=== PATIENT | female | born 2000 | race African-American/Black ===

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

== ENCOUNTER 2018-01-18 12:06 | Emergency (ER) | payer BC ==
[2018-01-18 13:21] LABS: Bilirubin Negative (Negative); Blood, Urine Negative (Negative); Clarity CLOUDY (Clear); Glucose, Urine (Dipstick) Negative (Negative); Leukocyte Moderate (Negative); Nitrite Negative (Negative); Protein, Urine (Dipstick) Negative (Neg-Trace)
[2018-01-18 13:31] LABS: Bacteria/HPF 2+ HPF (None Seen); Hyaline Casts/LPF 0-3 HYALINE CAST LPF (0-3 Hyaline); RBC/HPF 0-3 HPF (0-3)
[2018-01-18 13:39] LABS: Yeast-All Forms None Seen HPF (None Seen)
[2018-01-18 14:48] LABS: Pregu Control Background? CLEAR/WHITE (CLR/WHITE); Pregu Control Bar Appear? YES (CONTROL BAR)
[2018-01-18 14:50] LABS: Pregnancy Test - Urine (BHCG) Negative (Negative)
[2018-01-20 01:07] LABS: Chlamydia by PCR Not Detected (NotDetected); GC by PCR Not Detected (NotDetected)
== END 2018-01-18 14:55 | disposition home or self-care (01) ==
LOC: ERS 12:06
DX: N76.0 Acute vaginitis (principal); N39.0 Urinary tract infection, site not specified
CPT/HCPCS: 81003; 81015; 81025; 87480; 87491; 87510; 87591; 87660; 99283

== ENCOUNTER 2018-04-24 07:45 | Emergency (ER) | payer BC ==
[2018-04-24 08:28] LABS: Bilirubin Negative (Negative); Blood, Urine Trace (Negative); Clarity CLOUDY (Clear); Glucose, Urine (Dipstick) Negative (Negative); Leukocyte Large (Negative); Nitrite Positive (Negative); Protein, Urine (Dipstick) 30 mg/dL (Neg-Trace); Specific Gravity, Urine 1.016 (1.002-1.036); pH, Urine 7.5 (5.0-9.0)
[2018-04-24 08:30] LABS: Bacteria/HPF 3+ HPF (None Seen); Hyaline Casts/LPF 0-3 HYALINE CAST LPF (0-3 Hyaline); Pathc Cast-AUWi Flag 0.14 (0-2.49); Squamous Epithelial 0-3 HPF (0-3)
[2018-04-24 08:31] LABS: Pregnancy Test - Urine (BHCG) Negative (Negative); Pregu Control Background? CLEAR/WHITE (CLR/WHITE); Pregu Control Bar Appear? YES (CONTROL BAR); Specific Gravity 1.016 (1.002-1.036)
== END 2018-04-24 08:48 | disposition home or self-care (01) ==
LOC: ERS 07:45
DX: J06.9 Acute upper respiratory infection, unspecified (principal); N39.0 Urinary tract infection, site not specified
CPT/HCPCS: 81003; 81015; 81025; 87077; 87086; 87186; 99283

== ENCOUNTER 2018-05-27 12:09 | Emergency (ER) | payer BC ==
[2018-05-27 12:55] LABS: Bilirubin Negative (Negative); Blood, Urine Moderate (Negative); Clarity TURBID (Clear); Glucose, Urine (Dipstick) Negative (Negative); Leukocyte Large (Negative); Nitrite Positive (Negative); Protein, Urine (Dipstick) 100 mg/dL (Neg-Trace); Specific Gravity, Urine 1.015 (1.002-1.036)
[2018-05-27 12:57] LABS: Pregnancy Test - Urine (BHCG) Negative (Negative); Pregu Control Background? CLEAR/WHITE (CLR/WHITE); Pregu Control Bar Appear? YES (CONTROL BAR); Specific Gravity 1.015 (1.002-1.036)
[2018-05-27 12:58] LABS: Bacteria/HPF 4+ HPF (None Seen); Squamous Epithelial 0-3 HPF (0-3); Yeast-AUWi Flag 20.1 (0-25.0)
[2018-05-27 12:59] LABS: Pathc Cast-AUWi Flag 2.66 (0-2.49)
[2018-05-27] MEDS ORDERED: Ketorolac Tromethamine 30 MG/ML VIAL ONE (13:08)
[2018-05-27 13:13] LABS: Hyaline Casts/LPF 0-3 HYALINE CAST LPF (0-3 Hyaline); Other Casts/LPF None Seen LPF (0-3 Hyaline)
[2018-05-27 13:33] LABS: Mean Corpuscular HGB CONC 32.8 g/dL (32.0-36.0); Mean Corpuscular Volume 94.4 fL (78.0-98.0); Mean Platelet Volume 7.7 fL (7.4-10.4); Platelet Count 208 thou/uL (130-400); RBC Distribution Width 11.7 % (11.5-14.5); Red Blood Cell (RBC) Count 3.88 mill/uL (4.00-5.20); White Blood Cell (WBC) Count 9.3 thou/uL (4.8-10.8)
[2018-05-27 13:38] LABS: ALT (SGPT) 7 U/L (8-55); AST (SGOT) 13 U/L (5-30); Albumin 3.9 g/dL (3.5-5.0); Alkaline Phosphatase 48 U/L (40-150); Anion Gap 11 mmol/L (10-20); BUN (Urea Nitrogen) 9 mg/dL (8.4-21.0); Bilirubin, Total 2.5 mg/dL (0.2-1.2); Calc. Creatinine Clearance 0 mL/min (70-130); Calcium 9.2 mg/dL (7.8-10.44); Carbon Dioxide 24 mmol/L (22-29); Chloride 106 mmol/L (98-107); Estimated GFR-MDRD Greater than 90; Glucose 81 mg/dL (70-105); Lipase 22 U/L (8-78); Potassium 3.5 mmol/L (3.5-5.1); Protein, Total 6.9 g/dL (6.0-8.3); Sodium 137 mmol/L (136-145)
[2018-05-27 13:48] LABS: Band 1 % (5-11); Lymphocytes 16 % (28-48); MDiff Complete? YES; Monocytes 9 % (0-4); Neutrophil 74 % (31-61); PLT Morphology Comment Appears Adequate; RBC Morphology Normal; Vacuoles SLIGHT
[2018-05-27] MEDS ORDERED: Lidocaine 1% PF 5 ML VIAL ONE (13:50)
[2018-05-27] MEDS ORDERED: cefTRIAXone\\ROCEPHIN 500 MG VIAL ONE (13:50)
== END 2018-05-27 14:53 | disposition home or self-care (01) ==
LOC: ERS 12:09
DX: N12 Tubulo-interstitial nephritis, not specified as acute or chronic (principal)
CPT/HCPCS: 36415; 80053; 81003; 81015; 81025; 83690; 85025; 87077; 87086; 87186; 96372; J0696; J1885; J2001

== ENCOUNTER 2018-07-26 10:23 | Emergency (ER) | payer BC ==
[2018-07-26 11:33] LABS: #Eosinphils 0.4 thou/uL (0.0-0.7); #Lymphocytes 2.5 thou/uL (1.20-3.40); #Monocytes 0.5 thou/uL (0.11-0.59); #Neutrophils 3.6 thou/uL (1.40-6.50); %Basophils 0.4 % (0.0-1.0); %Eosinophils 6.2 % (0.0-10.0); %Lymphocytes 35.6 % (28.0-48.0); %Monocytes 7.3 % (0.0-4.0); %Neutrophils 50.5 % (31.0-61.0); Hemoglobin 11.4 g/dL (12.0-16.0); Mean Corpuscular HGB CONC 32.6 g/dL (32.0-36.0); Mean Corpuscular Hemoglobin 30.5 pg (25.0-35.0); Mean Corpuscular Volume 93.8 fL (78.0-98.0); Mean Platelet Volume 8.7 fL (7.4-10.4); Platelet Count 196 thou/uL (130-400); RBC Distribution Width 11.9 % (11.5-14.5); Red Blood Cell (RBC) Count 3.75 mill/uL (4.00-5.20); White Blood Cell (WBC) Count 7.1 thou/uL (4.8-10.8)
[2018-07-26 11:52] LABS: ALT (SGPT) 10 U/L (8-55); AST (SGOT) 20 U/L (5-34); Alkaline Phosphatase 42 U/L (40-150); Anion Gap 14 mmol/L (10-20); BUN (Urea Nitrogen) 12 mg/dL (7.0-18.7); Bilirubin, Total 0.7 mg/dL (0.2-1.2); Calc. Creatinine Clearance 0 mL/min (70-130); Calcium 9.3 mg/dL (7.8-10.44); Carbon Dioxide 19 mmol/L (22-29); Chloride 109 mmol/L (98-107); Estimated GFR-MDRD Greater than 90; Globulin 3.1 g/dL (2.4-3.5); Glucose 85 mg/dL (70-105); Potassium 3.8 mmol/L (3.5-5.1); Protein, Total 7.1 g/dL (6.0-8.3); Sodium 138 mmol/L (136-145)
[2018-07-26 12:07] LABS: Bilirubin Negative (Negative); Blood, Urine Negative (Negative); Clarity CLEAR (Clear); Glucose, Urine (Dipstick) Negative (Negative); Leukocyte Negative (Negative); Nitrite Negative (Negative); Protein, Urine (Dipstick) Negative (Neg-Trace); Specific Gravity, Urine 1.027 (1.002-1.036); pH, Urine 5.5 (5.0-9.0)
[2018-07-26 12:08] LABS: Pregnancy Test - Urine (BHCG) Negative (Negative); Pregu Control Background? CLEAR/WHITE (CLR/WHITE); Pregu Control Bar Appear? YES (CONTROL BAR); Specific Gravity 1.027 (1.002-1.036)
[2018-07-26] MEDS ORDERED: Fluconazole 100 MG TAB PO SCH (12:15)
== END 2018-07-26 12:34 | disposition home or self-care (01) ==
LOC: ERS 10:23
DX: B37.3 Candidiasis of vulva and vagina (principal)
CPT/HCPCS: 36415; 80053; 81003; 81025; 85025; 99283

== ENCOUNTER 2018-10-11 19:04 | Emergency (ER) | payer BC ==
[2018-10-11 19:24] LABS: Bilirubin Negative (Negative); Blood, Urine Negative (Negative); Clarity CLOUDY (Clear); Glucose, Urine (Dipstick) Negative (Negative); Leukocyte Moderate (Negative); Nitrite Positive (Negative); Protein, Urine (Dipstick) 30 mg/dL (Neg-Trace); Specific Gravity, Urine 1.028 (1.002-1.036); pH, Urine 7.5 (5.0-9.0)
[2018-10-11 19:25] LABS: Bacteria/HPF 4+ HPF (None Seen); Pathc Cast-AUWi Flag 0.14 (0-2.49); Pregnancy Test - Urine (BHCG) Negative (Negative); Pregu Control Background? CLEAR/WHITE (CLR/WHITE); Pregu Control Bar Appear? YES (CONTROL BAR); Specific Gravity 1.028 (1.002-1.036)
[2018-10-11 19:34] LABS: Hyaline Casts/LPF 0-3 HYALINE CAST LPF (0-3 Hyaline)
== END 2018-10-11 19:54 | disposition home or self-care (01) ==
LOC: ERS 19:04
DX: N39.0 Urinary tract infection, site not specified (principal)
CPT/HCPCS: 81003; 81015; 81025; 87077; 87086; 87186; 99283

== ENCOUNTER 2019-01-06 08:54 | Emergency (ER) | payer BC ==
[2019-01-06 09:26] LABS: Bilirubin Negative (Negative); Blood, Urine Moderate (Negative); Clarity TURBID (Clear); Glucose, Urine (Dipstick) Negative (Negative); Leukocyte Large (Negative); Nitrite Negative (Negative); Protein, Urine (Dipstick) 30 mg/dL (Neg-Trace); Specific Gravity, Urine 1.028 (1.002-1.036)
[2019-01-06 09:27] LABS: Bacteria/HPF 2+ HPF (None Seen); Hyaline Casts/LPF 4-6 HYALINE CAST LPF (0-3 Hyaline); Pathc Cast-AUWi Flag 1.21 (0-2.49)
[2019-01-06 09:29] LABS: Pregnancy Test - Urine (BHCG) Negative (Negative); Pregu Control Background? CLEAR/WHITE (CLR/WHITE); Pregu Control Bar Appear? YES (CONTROL BAR); Specific Gravity 1.028 (1.002-1.036)
== END 2019-01-06 09:35 | disposition home or self-care (01) ==
LOC: ERS 08:54
DX: N39.0 Urinary tract infection, site not specified (principal)
CPT/HCPCS: 81003; 81015; 81025; 99283

== ENCOUNTER 2020-06-17 12:30 | Emergency (ER) | payer SELFPAY | END 2020-06-17 13:51 | disposition home or self-care (01) | LOC: ERS 12:30 | DX: O9A.211 Injury, poisoning and certain other consequences of external causes complicating pregnancy, first trimester (principal); Z3A.13 13 weeks gestation of pregnancy; M25.511 Pain in right shoulder; H92.03 Otalgia, bilateral; W22.8XXA Striking against or struck by other objects, initial encounter ==

== ENCOUNTER 2020-12-19 07:56 | Inpatient (IN) | payer BC, MEDICAID ==
[2020-12-26] MEDS ORDERED: Bupivacaine HCl 0.25%/Epi 0.0005/PF 10 ML VIAL FS ONE (11:23)
[2020-12-26] MEDS: Lactated Ringer's 1,000 ML IV SCH (20:30)
[2020-12-26] MEDS ORDERED: Ondansetron PF 4 MG/2 ML Vial IVP PRN (20:57)
[2020-12-26] MEDS ORDERED: hydrALAZINE 20 MG/ML VIAL SLOW IVP PRN (20:57)
[2020-12-26] MEDS ORDERED: Ibuprofen 800 MG TAB PO PRN (20:57)
[2020-12-26] MEDS ORDERED: Lidocaine 1% (PF) 30 ML VIAL SC PRN (20:57)
[2020-12-26] MEDS ORDERED: HYDROcodone/Acetaminophen 5/325 mg Tablet PO PRN ×2 (20:57)
[2020-12-26] MEDS ORDERED: Carboprost 250 MCG/ML AMP IM PRN (20:57)
[2020-12-26] MEDS ORDERED: Misoprostol 200 MCG TAB PR PRN (20:57)
[2020-12-26] MEDS ORDERED: Promethazine HCl 25 MG/ML VIAL IM PRN (20:57)
[2020-12-26] MEDS ORDERED: Diphenoxylate HCl/Atropine Tablet PO PRN ×2 (20:57)
[2020-12-26] MEDS ORDERED: Methylergonovine 0.2 MG/ML VIAL IM PRN (20:57)
[2020-12-26 21:04] VITALS: BMI 39.3
[2020-12-26 21:30] LABS: Hemoglobin 12.1 g/dL (12.0-16.0); Mean Corpuscular HGB CONC 33.5 g/dL (32.0-36.0); Mean Corpuscular Hemoglobin 32.9 pg (27.0-31.0); Mean Corpuscular Volume 98.2 fL (78.0-98.0); Mean Platelet Volume 10.7 fL (7.4-10.4); Platelet Count 158 thou/uL (130-400); Red Blood Cell (RBC) Count 3.69 mill/uL (4.20-5.40)
[2020-12-26] MEDS ORDERED: NS w/ Oxytocin 30 units 500 ML IVPB PRN (21:39)
[2020-12-26] MEDS ORDERED: NS w/ Oxytocin 30 units 500 ML IVPB SCH (21:45)
[2020-12-26] MEDS: Misoprostol 100 MCG TAB VAG SCH (21:49)
[2020-12-26 22:09] LABS: Syphilis Antibody Nonreactive (Nonreactive); Syphilis Antibody Index 0.04 S/CO (<1.00 Non-Reactive)
[2020-12-26 22:39] LABS: HBSAg Index 0.17 S/CO (0-0.99); Hep B Surf Ag Non-Reactive S/CO (NonReactive)
[2020-12-27] MEDS: Misoprostol 100 MCG TAB VAG SCH (00:57)
[2020-12-27] MEDS ORDERED: Terbutaline Sulfate 1 MG/ML VIAL ONE (02:42)
[2020-12-27] MEDS: Lactated Ringer's 1,000 ML IV SCH ×3 (06:43→20:51)
[2020-12-27] MEDS: Butorphanol Tartrate 1 MG/ML VIAL SLOW IVP PRN ×3 (08:06→14:29)
--- NOTE | 2020-12-27 08:14 | PDOC.LDHP ---
Labor and Delivery H&P Chief complaint: scheduled induction (for postdates) HPI: pt arrives for IOL. Current gestational age (weeks): 41 Due date: 12/19/20 Dating criteria: last menstrual period (verified with 8w US) Grav: 1 Para: 0 Current complications: other (CT+ Trich + Neg DACIA on 08/15/20 and at 36 weeks visit.) Abnormal US findings: No Current medications: pre- vitamins, other (Aspirin) Previous surgical history: other (Tonsillectomy) Allergies/Adverse Reactions: Allergies Allergy/AdvReac Type Severity Reaction Status Date / Time No Known Allergies Allergy Unverified 02/20/20 18:22 Social history: none - Physical Exam Vital signs reviewed and normal: yes General: breathing through contractions Heart: other Lungs: nonlabored breathing Abdomen: gravid Extremeties: pitting edema FHT: category 1 - Vaginal Exam cm dilated: 2 Effacement: 50% Station: -3 - OB Labs Blood type: AB RH: positive Antibody Screen: negative HIV: negative RPR: negative HEPSAg: negative 1 hour GCT: negative GBS: negative Urine drug screen: negative Rubella: immune - Assessment L&D Assessment: elective induction at term (for postdates.) - Plan Plan: admit to L&D, cervical ripening (Two doses of cytoec PV given overnight. intolerance to cytotec. Terb was given to stop contractions. Cook balloon placed this am for cervical ripening.), informed consent obtained, anesthesia consult for pain management
[2020-12-27] MEDS ORDERED: Labetalol HCl 100 MG/20 ML VIAL SLOW IVP PRN ×4 (19:20→19:30)
--- NOTE | 2020-12-27 19:30 | PDOC.BPN ---
- Brief Progress Note Encounter Date: 12/27/20 Encounter Time: 19:28 Notified of RN of two severe range BPS. Treated with Hydralizine 5mg. Orders added to given PRN labetalol in 20mg, 40mg, 80mg, 80mg every twenty minutes for pressures. Instructed shift supervisor film processing RN to discontinue cooks balloon and encourage patient to get epidural.
[2020-12-27] MEDS ORDERED: Fentanyl 4 mcg/Bup 0.1% Cadd 100 ML ONE (19:47)
[2020-12-27] MEDS: Fentanyl 4 mcg/Bupivacaine 0.1% Cassette 100 ML EPIDURAL SCH (20:16)
[2020-12-27] MEDS ORDERED: Promethazine HCl 25 MG/ML VIAL IM PRN (20:31)
[2020-12-27] MEDS ORDERED: Lactated Ringer's 500 ML IV PRN (20:31)
[2020-12-27] MEDS ORDERED: ePHEDrine 50 MG/ML VIAL SLOW IVP PRN (20:31)
[2020-12-27] MEDS ORDERED: diphenhydrAMINE 50 MG/ML VIAL IVP PRN (20:31)
[2020-12-27] MEDS ORDERED: Naloxone HCl 0.4 mg/ml Vial IVP PRN ×2 (20:31)
[2020-12-27] MEDS ORDERED: Acetaminophen 325 MG TAB PO PRN (20:31)
[2020-12-27] MEDS ORDERED: Ondansetron PF 4 MG/2 ML Vial IVP PRN (20:31)
[2020-12-27] MEDS ORDERED: Communication Order-Pharmacy FS SCH (20:45)
[2020-12-28] MEDS ORDERED: Azithromycin 500 MG VIAL ONE (00:28)
[2020-12-28] MEDS: Fentanyl 4 mcg/Bupivacaine 0.1% Cassette 100 ML EPIDURAL SCH (04:20)
[2020-12-28] MEDS ORDERED: Famotidine/PF 20 mg/2ml Vial SLOW IVP PRN (05:46)
[2020-12-28] MEDS ORDERED: Bicitra 30 ML UDCUP PO PRN (05:46)
[2020-12-28] MEDS ORDERED: CEFAZOLIN 2 GM in Premix Bag 1 BAG IVPB SCH (06:00)
[2020-12-28] MEDS ORDERED: Azithromycin 500 MG in Sodium Chloride 0.9% 250 ML 250 ML IVPB SCH (06:00)
[2020-12-28] MEDS ORDERED: Morphine PF 10 MG/10 ML VIAL ONE (07:23)
[2020-12-28] MEDS ORDERED: Oxytocin 10 UNITS/ML VIAL ONE (07:24)
[2020-12-28] MEDS ORDERED: Lidocaine 2% 10 ML INJ ONE (07:24)
[2020-12-28] MEDS ORDERED: Ondansetron PF 4 MG/2 ML Vial ONE (07:24)
[2020-12-28] MEDS ORDERED: Fentanyl 100 MCG/2 ML VIAL ONE (08:02)
[2020-12-28] MEDS ORDERED: Naloxone HCl 0.4 mg/ml Vial IV PRN (08:08)
[2020-12-28] MEDS ORDERED: diphenhydrAMINE 50 MG/ML VIAL IVP PRN (08:08)
[2020-12-28] MEDS ORDERED: Naloxone HCl 0.4 mg/ml Vial IVP PRN ×2 (08:08)
[2020-12-28] MEDS ORDERED: Ondansetron HCl/PF 4 MG/2 ML Vial IVP PRN (08:08)
[2020-12-28] MEDS ORDERED: Promethazine HCl 25 MG SUPP PR PRN (08:08)
[2020-12-28] MEDS ORDERED: Ondansetron PF 4 MG/2 ML Vial IVP PRN ×2 (08:08→11:24)
[2020-12-28] MEDS ORDERED: L&D-Morphine 4 MG/ML VIAL SLOW IVP PRN (08:08)
[2020-12-28] MEDS ORDERED: Meperidine HCl/PF 25 MG/ML VIAL SLOW IVP PRN (08:08)
[2020-12-28] MEDS ORDERED: Promethazine HCl 25 MG/ML VIAL IM PRN (08:08)
[2020-12-28] MEDS ORDERED: Ketorolac Tromethamine 30 MG/ML VIAL IVP SCH (08:15)
[2020-12-28] MEDS ORDERED: Communication Order-Pharmacy FS SCH (08:15)
--- NOTE | 2020-12-28 08:21 | PDOC.OPDEL ---
OB Operative/Delivery Note Delivery Dr/Surgeon: Shaheed Assist: Light Pre-Delivery Diagnosis: non-reassuring tracing Procedure/Post Delivery Dx: primary low transverse CS Weeks gestation: 41 Anesthesia: epidural - Findings A Sex: male - 1 min: 8 - 5 min: 9 - Additional Findings/Plan Placenta delivered: spontaneous findings: low transverse hysterotomy without extension, normal uterus, normal tubes, normal ovaries (PCO ovaries) Estimated blood loss: 300cc Compilations/Other Findings: thick meconium, OP presentation, significant caput and molding. Post delivery plan: routine recovery
[2020-12-28] MEDS ORDERED: Meperidine HCl/PF 25 MG/ML VIAL ONE (08:43)
--- NOTE | 2020-12-28 08:45 | OP ---
DATE OF PROCEDURE: 12/28/2020 PREOPERATIVE DIAGNOSES: 1. Intrauterine at 41 weeks and 2 days. 2. intolerance of labor remote from delivery. POSTOPERATIVE DIAGNOSES: 1. Intrauterine at 41 weeks and 2 days. 2. intolerance of labor remote from delivery. 3. Thick meconium and OP presentation. FOREST TECHNICIAN: Poly Young CNM PROCEDURE PERFORMED: Primary low-transverse section via Pfannenstiel skin incision. ANESTHESIA: Epidural. ESTIMATED BLOOD LOSS: 300 mL. URINE OUTPUT: 200 mL of concentrated urine. COMPLICATIONS: None. DRAINS: Martinez catheter. PATHOLOGY: None. FINDINGS: Male infant, cephalic presentation, OP, caput molding, thick meconium-stained fluid. Apgars 8 and 9. Weight is pending. Normal uterus, ovaries, and tubes. Hysterotomy without extension. Double-layer closure of the hysterotomy. DESCRIPTION OF PROCEDURE: The patient was taken to the operating room, where epidural anesthesia was found to be adequate. The patient was prepped and draped in a sterile fashion in the dorsal supine position with leftward tilt. After ensuring adequacy of anesthesia, a Pfannenstiel skin incision was made and carried down to the underlying subcutaneous tissue with a knife. The fascia was nicked in the midline with the Bovie and carried laterally with Mckeon scissors. The superior aspect of the fascia was tented with 2 Nimesh's and dissected off the rectus with the Mckeon scissors. The inferior aspect of the fascia was tented with 2 Nimesh's and dissected off the rectus down the pubic symphysis. The rectus was bluntly divided in the midline. The peritoneum was bluntly entered into and manually retracted. An Kristian O retractor was placed. Lower uterine segment was incised in a transverse fashion and extended with a Tijerina maneuver. The 's head was brought to the hysterotomy and delivered atraumatically with fundal pressure. The 's cord was clamped and infant handed to awaiting Sanjay team. The placenta was allowed to spontaneously deliver. The uterus was exteriorized, cleared of all clots and debris and placed back into the abdomen lapping of the posterior cul-de-sac. The hysterotomy was repaired with a #1 Monocryl in a running locking fashion. A second horizontal imbricating layer was placed with #1 Monocryl. Hemostasis was noted to be excellent. Irrigation was performed of the pelvis and pericolic gutters and suctioned. The Kristian O retractor was removed. The rectus muscles were examined and noted to be hemostatic. The fascia was reapproximated with a 0 PDS x1 suture with excellent reapproximation. The subcutaneous tissue was irrigated and cauterized of any bleeders, reapproximated with a 2-0 plain gut in a running fashion. The skin was closed with 4-0 Monocryl in a subcuticular fashion. Dermabond was applied as well as a pressure dressing. The patient tolerated the procedure well. Sponge, lap, and needle counts were correct x2. The patient was taken to recovery room in stable condition. The patient received Ancef 2 g and azithromycin 500 mg prior to the procedure. Job ID: [id number]
[2020-12-28] MEDS: Misoprostol 100 MCG TAB VAG SCH ×3 (09:32→12:09)
[2020-12-28] MEDS ORDERED: Ketorolac Tromethamine 30 MG/ML VIAL ONE (10:03)
[2020-12-28] MEDS: Ketorolac Tromethamine 30 MG/ML VIAL IVP PRN ×3 (10:05→22:13)
[2020-12-28] MEDS ORDERED: Lanolin Ointment 7 GM TUBE TOP PRN (11:24)
[2020-12-28] MEDS ORDERED: hydrALAZINE 20 MG/ML VIAL SLOW IVP PRN (11:24)
[2020-12-28] MEDS ORDERED: Methylergonovine 0.2 MG/ML VIAL IM PRN (11:24)
[2020-12-28] MEDS ORDERED: Adacel (T-DAP) 0.5 ML SYRINGE IM ONE (11:24)
[2020-12-28] MEDS ORDERED: Misoprostol 200 MCG TAB PR PRN (11:24)
[2020-12-28] MEDS ORDERED: diphenhydrAMINE 25 MG CAP PO PRN (11:24)
[2020-12-28] MEDS ORDERED: Prenatal Vitamin 1 TAB PO SCH (11:45)
[2020-12-28] MEDS ORDERED: Docusate Calcium (SURFAK) 240 MG CAP PO SCH (11:45)
[2020-12-28] MEDS ORDERED: Ferrous Sulfate 325 MG TAB PO SCH (11:45)
[2020-12-28] MEDS: Ferrous Sulfate 325 MG TAB PO SCH (12:06)
[2020-12-28] MEDS: Lactated Ringer's 1,000 ML IV SCH ×2 (12:07→12:09)
[2020-12-28] MEDS: AMPicillin 1 GM in Sodium Chloride 0.9% 100 ML IVPB SCH ×2 (13:04→17:42)
[2020-12-28] MEDS ORDERED: Gentamicin 80 MG/2 ML VIAL IM SCH (14:00)
[2020-12-28] MEDS: Gentamicin Sulfate 80 MG in Premix Bag 1 BAG IVPB SCH ×2 (14:17→22:13)
[2020-12-28] MEDS: Simethicone Chewable 80 MG TAB PO PRN ×2 (15:58→22:13)
[2020-12-28] MEDS ORDERED: HYDROcodone/Acetaminophen 5/325 mg Tablet PO PRN (20:15)
[2020-12-28] MEDS: Docusate Calcium (SURFAK) 240 MG CAP PO SCH (23:06)
[2020-12-29] MEDS: AMPicillin 1 GM in Sodium Chloride 0.9% 100 ML IVPB SCH (00:02)
[2020-12-29] MEDS: Lactated Ringer's 1,000 ML IV SCH ×3 (05:10→22:44)
[2020-12-29] MEDS: Gentamicin Sulfate 80 MG in Premix Bag 1 BAG IVPB SCH (05:10)
[2020-12-29] MEDS: Ketorolac Tromethamine 30 MG/ML VIAL IVP PRN (05:11)
[2020-12-29 05:17] LABS: Hemoglobin 10.4 g/dL (12.0-16.0); Mean Corpuscular HGB CONC 33.2 g/dL (32.0-36.0); Mean Corpuscular Hemoglobin 33.2 pg (27.0-31.0); Mean Platelet Volume 9.4 fL (7.4-10.4); Platelet Count 135 thou/uL (130-400); Red Blood Cell (RBC) Count 3.13 mill/uL (4.20-5.40); White Blood Cell (WBC) Count 19.9 thou/uL (4.8-10.8)
--- NOTE | 2020-12-29 05:48 | PDOC.PP ---
Post Progress Note Post Day #: 1 Subjective: States sleepy from the pain medication, feet feel puffy. No DOWNEY or visual changes PO intake tolerated: yes Flatus: yes Ambulation: yes Vital Signs (12 hours) Temp Pulse Resp BP 12/29/20 00:00 98.2 F 99 15 129/82 12/28/20 19:00 98.2 F 97 16 145/90 H Weight Weight 222 lb BPs reviewed over last 24 hrs: some BPs at 140/80s with last BP while I was in the room 154/902. - Physical Examination General: NAD Respiratory: non-labored breathing Deviation from normal: gas duistension noted and tympanic, but NT Abdominal: lochia, appropriately TTP Skin: CS incision dry & intact (I removed the dressing. Sutured and DB in use), no rash Neurological: no gross focal deficits Psychiatric: A&Ox3, normal affect Result Diagrams: 12/29/20 04:50 Additional Labs: Post Labs Hep Bs Antigen Non-Reactive S/CO (NonReactive) 12/26/20 21:06 Blood Type AB POSITIVE 12/26/20 21:06 (1) delivery delivered Code(s): O82 - ENCOUNTER FOR DELIVERY WITHOUT INDICATION Status: Acute - Assessment/Plan Assessment: POD1 from Primary CS. HTN noted PP (mild-Moderate), gas distension. Plan: 1. BPs not persistently in moderate range to RX...follow. 2. Feet swelling...I have ordered lasix 20mg IV to mobiklixe this fluid, this will also help with her BPs 3. Gas distension: simethicone now requested. RN to give 4. Incision C/D/I 5. Ambulate Continue POD1 care today.
[2020-12-29] MEDS ORDERED: Furosemide 20 MG/2 ML VIAL SLOW IVP SCH (06:00)
[2020-12-29] MEDS: Simethicone Chewable 80 MG TAB PO PRN (06:26)
[2020-12-29] MEDS: Ferrous Sulfate 325 MG TAB PO SCH ×2 (07:56→15:48)
[2020-12-29] MEDS: Docusate Calcium (SURFAK) 240 MG CAP PO SCH ×2 (08:05→21:24)
[2020-12-29] MEDS: Prenatal Vitamin 1 TAB PO SCH (08:05)
[2020-12-29] MEDS: HYDROcodone/Acetaminophen 5/325 mg Tablet PO PRN (08:06)
[2020-12-29] MEDS: Ibuprofen 800 MG TAB PO SCH ×2 (13:36→21:24)
[2020-12-30] MEDS: Ibuprofen 800 MG TAB PO SCH ×3 (05:22→21:30)
--- NOTE | 2020-12-30 07:07 | PDOC.PP ---
Post Progress Note Post Day #: 2 PO intake tolerated: yes Flatus: yes Ambulation: yes Vital Signs (12 hours) Temp Pulse Resp BP Pulse Ox 12/30/20 04:10 98.3 F 75 18 134/84 98 12/30/20 00:15 98.1 F 91 18 149/95 H 97 12/29/20 19:55 98.2 F 85 18 146/87 H 99 Weight Weight 222 lb - Physical Examination General: NAD Cardiovascular: no m/r/g, RRR Respiratory: clear to auscultation bilaterally, non-labored breathing Abdominal: + bowel sounds, lochia, no distention, appropriately TTP Skin: CS incision dry & intact, no rash Neurological: no gross focal deficits Psychiatric: A&Ox3, normal affect Result Diagrams: 12/29/20 04:50 Additional Labs: Post Labs Hep Bs Antigen Non-Reactive S/CO (NonReactive) 12/26/20 21:06 Blood Type AB POSITIVE 12/26/20 21:06 - Assessment/Plan doing wel dc today norco and ibuprofen sent
[2020-12-30] MEDS: Docusate Calcium (SURFAK) 240 MG CAP PO SCH ×2 (09:15→21:30)
[2020-12-30] MEDS: HYDROcodone/Acetaminophen 5/325 mg Tablet PO PRN (13:28)
[2020-12-30] MEDS: Prenatal Vitamin 1 TAB PO SCH (13:31)
[2020-12-30] MEDS: Ferrous Sulfate 325 MG TAB PO SCH ×2 (13:32→17:59)
--- NOTE | 2020-12-30 14:40 | PDOC.EVN ---
Event Note - Event Note Event Note: Pt is POD #2 s/p 1'cs being discharged this afternoon. However baby is not being discharged today and mom has requested a delay in discharge. I have discontinued the D/C order. Anticipate d/c tomorrow.
[2020-12-30] MEDS: Lactated Ringer's 1,000 ML IV SCH (20:35)
[2020-12-31] MEDS: Lactated Ringer's 1,000 ML IV SCH (03:51)
[2020-12-31] MEDS: Ibuprofen 800 MG TAB PO SCH (05:22)
[2020-12-31] MEDS: Prenatal Vitamin 1 TAB PO SCH (09:16)
[2020-12-31] MEDS: Ferrous Sulfate 325 MG TAB PO SCH (09:16)
[2020-12-31] MEDS: Docusate Calcium (SURFAK) 240 MG CAP PO SCH (09:16)
[2020-12-31 13:24] VITALS: BP 130/87; TEMP 97.7
--- NOTE | 2021-01-01 20:21 | PQF ---
Dear : Lori Hummel Date 01/02/2021 Please exercise your independent, professional judgment in responding to the clarification form. Clinical indicators are provided on the bottom of this form for your review Can you please further clarify the diagnosis of the patient? ___ Final Diagnosis on the Pathology report: Acute chorioamnionitis Please check appropriate box(es): [X ] Agree w the pathology finding of: Acute chorioamnionitis [ ] Other explanation of pathology findings (please specify) [ ] Other diagnosis [ ] Unable to determine Physician Signature: Date/Time: For continuity of documentation, please document condition throughout progress notes and discharge summary. Thank You. To be completed by CDI/Coding staff for physician review: Present Clinical Indicators - Signs / Symptoms / Labs Results and Location in Medical Record [ x ] membrane-- acute chorioamnionitis and meconium Pathology Report [ x ] Thick meconium and OP presentation OP report pg.1 Present Risk Factors Results and Location in Medical Record [ x ] 41 weeks OP report pg.1 [ x ] intolerance of labor OP report pg.1 Present Treatments Results and Location in Medical Record [ x ] Primary CS OP report pg.1 [ x ] IV Fluids MAR [ x ] Azithromycin 500mg IV MAR [ x ] Cefazolin 2gm IV MAR [ x ] Gentamicin 80mg IM MAR [ x ] Ampicillin 1 gm IV MAR CDS/Media Marketing Manager Signature: Tonio Hernandez Phone #: ext [phone] Date 01/02/2021 This is a permanent part of the Medical Record [facility]
== END 2020-12-31 13:10 | disposition home or self-care (01) | DRG 786 ==
LOC: EDSTATUS 16:08 → L&D 12-26 19:39 → 3SW 12-28 11:52
PROVIDERS: ADMIT Student in an Organized Health Care Education/Training Program; ATTEND Student in an Organized Health Care Education/Training Program
PROC: 10D00Z1 Extraction of Products of Conception, Low, Open Approach (ICD-10-PCS; principal; 2020-12-28)
PROC: 10907ZC Drainage of Amniotic Fluid, Therapeutic from Products of Conception, Via Natural or Artificial Opening (ICD-10-PCS; 2020-12-28)
PROC: 3E0P7VZ Introduction of Hormone into Female Reproductive, Via Natural or Artificial Opening (ICD-10-PCS; 2020-12-28)
PROC: 3E033VJ Introduction of Other Hormone into Peripheral Vein, Percutaneous Approach (ICD-10-PCS; 2020-12-28)
DX: O48.0 Post-term pregnancy (principal); O41.1230 Chorioamnionitis, third trimester, not applicable or unspecified; Z20.822 Contact with and (suspected) exposure to COVID-19; O76 Abnormality in fetal heart rate and rhythm complicating labor and delivery; O77.0 Labor and delivery complicated by meconium in amniotic fluid; Z3A.41 41 weeks gestation of pregnancy; Z37.0 Single live birth; O10.93 Unspecified pre-existing hypertension complicating the puerperium; O64.0XX0 Obstructed labor due to incomplete rotation of fetal head, not applicable or unspecified
CPT/HCPCS: 36415; 51702; 85027; 86780; 86850; 86900; 86901; 87340; 87635; 88307; J0290; J0360; J0595; J1200; J1580; J1885; J1940; J2175; J2270; J2405; J2590; J3010; J3105; J3490; Q0163; U0003; U0005

== ENCOUNTER 2020-12-24 08:27 | Outpatient (CLI) | payer BC ==
[2020-12-24 22:22] LABS: SARS-CoV-2 PCR by NAA Not Detected (NotDetected)
== END 2020-12-24 08:28 | disposition home or self-care (01) ==
LOC: LABBT 08:27
PROVIDERS: ATTEND Advanced Practice Midwife
DX: Z01.812 Encounter for preprocedural laboratory examination (principal); Z20.822 Contact with and (suspected) exposure to COVID-19
CPT/HCPCS: 87635; U0003; U0005

== ENCOUNTER 2023-03-26 08:00 | Emergency (ER) | payer OTHER ==
[2023-03-26 09:38] LABS: #Eosinphils 0.1 thou/uL (0.0-0.7); #Lymphocytes 0.9 thou/uL (1.20-3.40); #Monocytes 0.5 thou/uL (0.11-0.59); #Neutrophils 4.6 thou/uL (1.40-6.50); %Basophils 0.1 % (0.0-1.0); %Lymphocytes 14.8 % (21.0-51.0); %Monocytes 8.4 % (0.0-10.0); %Neutrophils 75.8 % (42.0-75.0); Hemoglobin 10.6 g/dL (12.0-16.0); Mean Corpuscular HGB CONC 32.8 g/dL (32.0-36.0); Mean Corpuscular Hemoglobin 30.8 pg (27.0-31.0); Mean Platelet Volume 8.3 fL (7.4-10.4); Platelet Count 199 10x3/uL (130-400); RBC Distribution Width 13.5 % (11.5-14.5); Red Blood Cell (RBC) Count 3.44 mill/uL (4.20-5.40); White Blood Cell (WBC) Count 6.1 10x3/uL (4.8-10.8)
[2023-03-26 09:56] LABS: ALT (SGPT) 8 U/L (8-55); AST (SGOT) 12 U/L (5-34); Albumin 3.4 g/dL (3.5-5.0); Alkaline Phosphatase 41 U/L (40-110); Anion Gap 10 mmol/L (10-20); BUN (Urea Nitrogen) 8 mg/dL (7.0-18.7); Calc. Creatinine Clearance 0 mL/min (70-130); Calcium 8.3 mg/dL (7.8-10.44); Carbon Dioxide 20 mmol/L (22-29); Chloride 109 mmol/L (98-107); Estimated GFR 127; Globulin 2.2 g/dL (2.4-3.5); Glucose 85 mg/dL (70-105); Potassium 3.8 mmol/L (3.5-5.1); Protein, Total 5.6 g/dL (6.0-8.3); Sodium 135 mmol/L (136-145)
[2023-03-26] MEDS ORDERED: Ondansetron PF 4 MG/2 ML Vial ONE (10:36)
[2023-03-26 11:40] LABS: Bacteria/HPF None Seen HPF (None Seen); Bilirubin Negative (Negative); Blood, Urine Negative (Negative); Clarity Turbid (Clear); Glucose, Urine (Dipstick) Normal (Negative); Ketone, Urine 40 mg/dL (Negative); Leukocyte 75 Leu/uL (Negative); Nitrite Negative (Negative); Protein, Urine (Dipstick) 20 mg/dL (Neg-Trace); RBC/HPF 0-3 HPF (0-3); Specific Gravity, Urine 1.021 (1.002-1.036); Squamous Epithelial 21-50 HPF (0-3); WBC/HPF 0-3 HPF (0-3)
== END 2023-03-26 11:05 | disposition home or self-care (01) ==
LOC: ERS 08:00
DX: R11.10 Vomiting, unspecified (principal)
CPT/HCPCS: 36415; 80053; 81003; 81015; 85025; 96361; 96374; J2405

== ENCOUNTER 2023-08-19 08:13 | Emergency (ER) | payer OTHER ==
[2023-08-19] MEDS ORDERED: Ondansetron ODT 4 MG TAB ONE (09:09)
[2023-08-19] MEDS ORDERED: Ibuprofen 800 MG TAB ONE (09:09)
== END 2023-08-19 09:20 | disposition home or self-care (01) ==
LOC: ERS 08:13
DX: Z02.79 Encounter for issue of other medical certificate (principal); R51.9 Headache, unspecified; R11.2 Nausea with vomiting, unspecified; D64.9 Anemia, unspecified
CPT/HCPCS: 99283; Q0162

== ENCOUNTER 2023-11-26 09:00 | Emergency (ER) | payer OTHER ==
[2023-11-26 10:44] LABS: BHCG - Serum Negative (NEGATIVE); Pregs Control Background? CLEAR/WHITE (CLR/WHITE); Pregs Control Bar Appear? YES (CONTROL BAR)
[2023-11-26 17:24] LABS: Chlamydia by PCR, Vaginal Swab Not Detected (NotDetected); GC by PCR, Vaginal Swab Not Detected (NotDetected)
== END 2023-11-26 11:16 | disposition home or self-care (01) ==
LOC: ERS 09:00
DX: Z20.2 Contact with and (suspected) exposure to infections with a predominantly sexual mode of transmission (principal)
CPT/HCPCS: 36415; 84703; 87480; 87491; 87510; 87591; 87660; 99283

== ENCOUNTER 2024-05-15 06:09 | Emergency (ER) | payer OTHER, SELFPAY | END 2024-05-15 08:08 | disposition home or self-care (01) | LOC: ERS 06:09 | DX: S31.41XA Laceration without foreign body of vagina and vulva, initial encounter (principal); W45.0XXA Nail entering through skin, initial encounter; Y93.89 Activity, other specified | CPT/HCPCS: 99283 ==

== ENCOUNTER 2024-11-05 12:43 | Emergency (ER) | payer OTHER, SELFPAY ==
[2024-11-05] MEDS ORDERED: Ondansetron ODT 4 MG TAB ONE (13:15)
[2024-11-05] MEDS ORDERED: Famotidine/PF 20 mg/2ml Vial ONE (13:39)
[2024-11-05] MEDS ORDERED: Haloperidol Lactate 5 MG/ML VIAL ONE (13:39)
[2024-11-05 13:47] LABS: Bilirubin Negative (Negative); Blood, Urine 1+ (Negative); CAUTI Indications for Culture Dysuria,urgency,freq; Clarity Turbid (Clear); Glucose, Urine (Dipstick) Normal (Negative); Ketone, Urine 80 mg/dL (Negative); Leukocyte Negative Leu/uL (Negative); Nitrite 2+ (Negative); Protein, Urine (Dipstick) 100 mg/dL (Neg-Trace); Specific Gravity, Urine 1.034 (1.002-1.036); Squamous Epithelial 0-3 HPF (0-3); Urobilinogen 6 mg/dL (Less than 2)
[2024-11-05 13:52] LABS: Pregnancy Test - Urine (BHCG) Negative (Negative); Pregu Control Background? CLEAR/WHITE (CLR/WHITE); Pregu Control Bar Appear? YES (CONTROL BAR); Specific Gravity 1.034 (1.002-1.036)
[2024-11-05 13:53] LABS: #Basophils 0.03 10x3/uL (0.0-0.2); #Eosinophils Less than 0.03 10x3/uL (0.0-0.7); %Basophils 0.3 % (0.0-1.0); %Lymphocytes 8.2 % (21.0-51.0); %Monocytes 2.7 % (0.0-10.0); %Neutrophils 88.4 % (42.0-75.0); Hematocrit 40.9 % (36.0-47.0); Hemoglobin 13.4 g/dL (12.0-16.0); Mean Corpuscular HGB CONC 32.8 g/dL (32.0-36.0); Mean Corpuscular Hemoglobin 31.7 pg (27.0-31.0); Mean Corpuscular Volume 96.7 fL (78.0-98.0); Mean Platelet Volume 10.5 fL (7.4-10.4); Platelet Count 291 10x3/uL (130-400); RBC Distribution Width 13.4 % (11.5-14.5); Red Blood Cell (RBC) Count 4.23 mill/uL (4.20-5.40)
[2024-11-05 13:59] LABS: Bacteria/HPF 4+ HPF (None Seen)
[2024-11-05 14:05] LABS: Urine Culture Reflex No No
[2024-11-05 14:08] LABS: ALT (SGPT) 12 U/L (8-55); AST (SGOT) 18 U/L (5-34); Albumin 4.4 g/dL (3.5-5.0); Alkaline Phosphatase 38 U/L (40-110); Anion Gap 17 mmol/L (10-20); BUN (Urea Nitrogen) 11 mg/dL (7.0-18.7); Bilirubin, Total 1.9 mg/dL (0.2-1.2); Calc. Creatinine Clearance 0 mL/min (70-130); Calcium 9.7 mg/dL (7.8-10.44); Carbon Dioxide 18 mmol/L (22-29); Chloride 110 mmol/L (98-107); Estimated GFR 85; Globulin 3.7 g/dL (2.4-3.5); Glucose 123 mg/dL (70-105); Lipase 21 U/L (8-78); Potassium 3.4 mmol/L (3.5-5.1); Protein, Total 8.1 g/dL (6.0-8.3); Sodium 142 mmol/L (136-145)
== END 2024-11-05 15:17 | disposition home or self-care (01) ==
LOC: ERS 12:43
DX: N39.0 Urinary tract infection, site not specified (principal); F12.10 Cannabis abuse, uncomplicated; R11.2 Nausea with vomiting, unspecified; R79.89 Other specified abnormal findings of blood chemistry; D64.9 Anemia, unspecified
CPT/HCPCS: 71045; 80053; 81001; 81025; 83690; 85025; 93005; 96374; 96375; J1630; J3490; Q0162

== ENCOUNTER 2024-12-17 11:06 | Emergency (ER) | payer MEDICAID, SELFPAY ==
[2024-12-17] MEDS ORDERED: Iopamidol-370 76% 500 ML MDV (1 ML CHARGE) ONE (11:09)
[2024-12-17] MEDS ORDERED: diphenhydrAMINE 50 MG/ML VIAL ONE (11:35)
[2024-12-17] MEDS ORDERED: Haloperidol Lactate 5 MG/ML VIAL ONE (11:36)
[2024-12-17 11:50] LABS: #Basophils 0.04 10x3/uL (0.0-0.2); %Basophils 0.4 % (0.0-1.0); %Eosinophils 0.8 % (0.0-10.0); %Lymphocytes 15.9 % (21.0-51.0); %Monocytes 5.8 % (0.0-10.0); %Neutrophils 76.8 % (42.0-75.0); Hematocrit 38.4 % (36.0-47.0); Hemoglobin 12.5 g/dL (12.0-16.0); Mean Corpuscular HGB CONC 32.6 g/dL (32.0-36.0); Mean Corpuscular Hemoglobin 31.3 pg (27.0-31.0); Mean Platelet Volume 10.7 fL (7.4-10.4); Platelet Count 289 10x3/uL (130-400); RBC Distribution Width 13.2 % (11.5-14.5)
[2024-12-17 12:10] LABS: BHCG - Serum Negative (NEGATIVE); Pregs Control Background? CLEAR/WHITE (CLR/WHITE); Pregs Control Bar Appear? YES (CONTROL BAR)
[2024-12-17 12:14] LABS: Acetaminophen Less than 10 mcg/mL (Less than 10); Alcohol Less than 10.0 mg/dL (Less than 10); Salicylate Less than 8.0 mg/dL (Less than 8.0)
[2024-12-17 12:15] LABS: ALT (SGPT) 15 U/L (8-55); AST (SGOT) 19 U/L (5-34); Albumin 4.3 g/dL (3.5-5.0); Alkaline Phosphatase 46 U/L (40-110); Anion Gap 19 mmol/L (10-20); BUN (Urea Nitrogen) 9 mg/dL (7.0-18.7); Bilirubin, Total 1.2 mg/dL (0.2-1.2); Calc. Creatinine Clearance 0 mL/min (70-130); Carbon Dioxide 16 mmol/L (22-29); Chloride 108 mmol/L (98-107); Estimated GFR 120; Globulin 3.8 g/dL (2.4-3.5); Glucose 110 mg/dL (70-105); Lipase 21 U/L (8-78); Potassium 2.9 mmol/L (3.5-5.1); Protein, Total 8.1 g/dL (6.0-8.3); Sodium 140 mmol/L (136-145)
[2024-12-17] MEDS ORDERED: Potassium Chloride 20 MEQ (100 mL) BAG ONE (12:27)
[2024-12-17] MEDS ORDERED: Potassium Chloride 20 MEQ TAB ONE ×2 (12:32→12:33)
[2024-12-17 13:03] LABS: Bilirubin Negative (Negative); Blood, Urine Negative (Negative); CAUTI Indications for Culture Pelvic or flank pain; Clarity Clear (Clear); Glucose, Urine (Dipstick) Normal (Negative); Ketone, Urine 80 mg/dL (Negative); Leukocyte Negative Leu/uL (Negative); Nitrite 2+ (Negative); Protein, Urine (Dipstick) 20 mg/dL (Neg-Trace); RBC/HPF 0-3 HPF (0-3); Specific Gravity, Urine 1.029 (1.002-1.036); Squamous Epithelial 0-3 HPF (0-3); Urobilinogen Normal mg/dL (Less than 2); WBC/HPF 0-3 HPF (0-3); pH, Urine 7.5 (5.0-9.0)
[2024-12-17 13:05] LABS: Bacteria/HPF 1+ HPF (None Seen); Urine Culture Reflex No No
[2024-12-17 13:08] LABS: Amphetamine Not Detected (NotDetected); Barbiturates Screen Not Detected (NotDetected); Benzodiazepine Screen Not Detected (NotDetected); Cocaine Metabolite Screen Not Detected (NotDetected); Methadone Not Detected (NotDetected); Methamphetamine Not Detected (NotDetected); Opiate Screen Not Detected (NotDetected); Oxycodone Screen Not Detected (NotDetected); Phencyclidine (PCP) Not Detected (NotDetected); THC/Cannabinoid Screen Detected (NotDetected); Tricyclic Screen Not Detected (NotDetected)
== END 2024-12-17 13:57 | disposition home or self-care (01) ==
LOC: ERS 11:06
DX: R11.2 Nausea with vomiting, unspecified (principal); E87.6 Hypokalemia
CPT/HCPCS: 36415; 74177; 80053; 80306; 80307; 81001; 83690; 84703; 85025; 96374; 96375; J1200; J1630; J3480; Q9967

== ENCOUNTER 2025-07-19 09:40 | Emergency (ER) | payer SELFPAY | END 2025-07-19 11:39 | disposition home or self-care (01) | LOC: ERS 09:40 | DX: B34.9 Viral infection, unspecified (principal); J06.9 Acute upper respiratory infection, unspecified; J32.9 Chronic sinusitis, unspecified; E11.9 Type 2 diabetes mellitus without complications | CPT/HCPCS: 87081; 87428; 87430; 99283 ==